=== PATIENT | male | born 1990 | race Caucasian/White ===

== ENCOUNTER 2023-11-07 06:17 | Day surgery (SDC) | payer OTHER ==
[~2023-11-07] VITALS: Ht 177.8 cm; Wt 129.3 kg
[~2023-11-07 06:17] MED LIST: IBUP-1022 PO; LR 1,000 ML IV SCH
[2023-11-07] MEDS: MIDAZOLAM INJ 2MG/2ML VIAL IV PRN (07:25)
[2023-11-07] MEDS: fentaNYL 100 MCG/2 ML INJECTION IV PRN (07:25)
[2023-11-07] MEDS: EPINEPHrine INJ 1 MG/ML 1ML AMP PN ONE (07:36)
[2023-11-07] MEDS: LIDOCAINE 1% SDV 5ML VIAL PN ONE (07:36)
[2023-11-07] MEDS: ROPIvacaine 0.5% 30ML VIAL PN ONE (07:37)
[2023-11-07] MEDS: dexAMETHasone 10MG/1ML VIAL PRES.FREE PN ONE (07:37)
[2023-11-07] MEDS: ceFAZolin 1GM VIAL As Ordered ONE (08:00)
[2023-11-07] MEDS: TRANEXAMIC ACID 100 MG/ML 10ML VIAL As Ordered ONE (08:00)
[2023-11-07] MEDS: ceFAZolin SOD 2 GM in IV 1 EA IV ONE (08:00)
[2023-11-07] MEDS ORDERED: MIDAZOLAM INJ 2MG/2ML VIAL As Ordered ONE (08:14)
[2023-11-07] MEDS ORDERED: METOCLOPRAMIDE INJ 10MG/2ML VIAL As Ordered ONE (08:14)
[2023-11-07] MEDS ORDERED: ROCURONIUM BROMIDE 50MG/5ML VIAL As Ordered ONE (08:14)
[2023-11-07] MEDS ORDERED: ONDANSETRON 4MG 2ML VIAL As Ordered ONE (08:14)
[2023-11-07] MEDS ORDERED: SUGAMMADEX SODIUM 500 MG/5 ML VIAL (BRIDION) As Ordered ONE (08:14)
[2023-11-07] MEDS ORDERED: ACETAMINOPHEN 1000MG 100ML IV BAG As Ordered ONE (08:14)
[2023-11-07] MEDS ORDERED: propofoL 200 MG/20 ML VIAL As Ordered ONE (08:14)
[2023-11-07] MEDS ORDERED: LIDOCAINE 2% 100MG/5ML SDV (FOR ANES.) As Ordered ONE (08:14)
[2023-11-07] MEDS ORDERED: fentaNYL 250 MCG/5 ML INJECTION As Ordered ONE (08:14)
[2023-11-07] MEDS ORDERED: dexmedeTOMIDine (4MCG/ML)200MCG/50ML BTL (PRECEDEX) As Ordered ONE (08:16)
[2023-11-07] MEDS ORDERED: SEVOFLURANE INHAL SOLN 250 ML BTL As Ordered ONE (08:29)
[2023-11-07] MEDS ORDERED: KETOROLAC 60MG 2ML VIAL As Ordered ONE (08:34)
[2023-11-07] MEDS: EPINEPHrine INJ 1 MG/ML 1ML AMP As Ordered ONE (08:58)
[2023-11-07] MEDS ORDERED: DESFLURANE 240 ML INHALANT As Ordered ONE (10:30)
[2023-11-07] MEDS ORDERED: HYDROmorphone HCL 2MG/ML 1ML VIAL As Ordered ONE (10:35)
[2023-11-07] MEDS ORDERED: fentaNYL 100 MCG/2 ML INJECTION IV PRN (11:45)
[2023-11-07] MEDS: ONDANSETRON 4MG 2ML VIAL IV PRN (12:20)
[2023-11-07] MEDS: oxyCODONE 5MG TAB PO PRN (12:21)
[2023-11-07 14:05] VITALS: BP 150/88; TEMP 98; O2SAT 97
== END 2023-11-07 14:35 | disposition home or self-care (01) ==
LOC: M SDC 06:17
PROVIDERS: ATTEND Orthopaedic Surgery
DX: M23.612 Other spontaneous disruption of anterior cruciate ligament of left knee (principal); Q68.6 Discoid meniscus
CPT/HCPCS: 27427; 29881; 76000; C1713; C1762; J0131; J0171; J0690; J1100; J1170; J1885; J2250; J2405; J2765; J3010